=== PATIENT | female | born 1970 | race Caucasian/White ===

== ENCOUNTER 2017-05-16 09:47 | Emergency (ER) | payer OTHER ==
[~2017-05-16] VITALS: Ht 154.9 cm; Wt 64.0 kg
[~2017-05-16 09:47] MED LIST: CHANTIX0.5 MG PO; NO MEDS; PREDNISONE50 MG PO; PROAIR HFA8.5 GM IH
[2017-05-16 10:06] VITALS: BP 139/88
== END 2017-05-16 11:10 | disposition left against medical advice (07) ==
LOC: EME 09:47
DX: R60.0 Localized edema (principal); Z53.21 Procedure and treatment not carried out due to patient leaving prior to being seen by health care provider